=== PATIENT | female | born 1975 | race Caucasian/White ===

== ENCOUNTER 2018-11-24 08:00 | Outpatient (CLI) | payer OTHER | END 2018-11-24 09:00 | disposition home or self-care (01) | LOC: D.MAMMO 08:00 | DX: Z12.31 Encounter for screening mammogram for malignant neoplasm of breast (principal) ==

== ENCOUNTER → 2020-04-09 21:23 | Outpatient (CLI) | payer OTHER | END | disposition home or self-care (01) | LOC: D.MAMMO 16:15 | PROVIDERS: ATTEND Family Medicine | DX: Z12.31 Encounter for screening mammogram for malignant neoplasm of breast (principal) ==

== ENCOUNTER 2020-07-29 10:00 | Day surgery (SDC) | payer OTHER ==
[~2020-07-29] VITALS: Ht 157.5 cm; Wt 102.3 kg
[~2020-07-29 10:00] MED LIST: HYDROCODON-ACE1 EA10 PO; MERIBIN5 MG PO; MULTI-DAY VITAM1 TAB PO; PROTONIX20 MG PO; TYLENOL W/CODEI1 TAB PO
[2020-07-29] MEDS ORDERED: VISTARIL50 MG PO (11:07)
[2020-07-29] MEDS ORDERED: PERCOCET 10-321 EAC1 PO (11:07)
[2020-07-29 11:18] LABS: HCG SERUM NEGATIVE (NEGATIVE)
[2020-07-29 11:27] VITALS: Ht 157.5 cm; Wt 102.3 kg
[2020-07-29 12:12] LABS: HEMATOCRIT 37.1 % (36.0-48.0); MCH 30.8 pg (26.0-34.0); MCHC 32.3 g/dL (31.0-37.0); MCV 95.1 fL (80.0-100.0); MEAN PLATELET VOLUME 9.4 fL (7.4-10.4); RBC 3.9 10x6/uL (4.00-5.40); RDW 13.1 % (11.5-14.5); WBC 5.3 10x3/uL (4.8-10.8)
--- NOTE | 2020-07-29 14:03 | NUR ---
ASSUMED CARE OF PT FROM NIKIA NOLEN RN. REPORT RECEIVED.
--- NOTE | 2020-07-29 15:41 | NUR ---
DISCHARGE INSTRUCTIONS REVIEWED WITH PATIENT AND SPOUSE, DISCHARGED HOME VIA WHEELCHAIR TO PRIVATE VEHICLE WITH SPOUSE
--- NOTE | 2020-07-30 07:57 | OP ---
PATIENT NAME: FLAKO MARCANO MEDICAL RECORD: [id number] LOCATION:[facility] ADMISSION DATE: SURGEON: WATSON PHILLIPS DO DATE OF OPERATION: 07/29/2020 PROCEDURE PERFORMED: Left ankle open reduction and internal fixation. PREOPERATIVE DIAGNOSIS: Left ankle fracture. POSTOPERATIVE DIAGNOSIS: Left ankle fracture. INDICATIONS: Ms. Marcano is a 44-year-old female who was dancing on her boat and fell and broke her left ankle. She was seen in my clinic and scheduled for surgery as a displaced distal fibular fracture with medial space widening. I informed her of the risks of this including infection, bleeding, malunion, nonunion, continued pain, need for further surgery, failure of implants and blood clots and even and she signed the consent. SURGEON: Watson Phillips DO DESCRIPTION OF PROCEDURE: The patient was taken to the operative suite, laid in supine position, given general anesthetic. She was given a block by anesthesia in the preoperative area prior to this. She was given 2 g of Ancef. After she was sedated, an LMA was placed. The left lower extremity was prepped and draped in sterile fashion. A time-out was performed and everyone was in agreement with correct side, site, patient, and procedure. I then exsanguinated the left lower extremity with an Esmarch. Tourniquet was inflated to 350 mmHg and was up for 21 minutes. I made an incision on the lateral ankle. Careful dissection down to the fibula reduced it. I put the plate on, was in good position in AP and lateral, and I put a screw into the shaft and then locked distally and one more screw in the shaft. I noticed the mortise widening in the medial clear space and then I clamped it together and put a ZipTight across. This held it very well and I stressed it under fluor and I did not widen after the ZipTight was put in place. The tourniquet was then let down. Any bleeding was coagulated with a pickup and a Bovie. Andra Mcdonough, certified surgical assistant plant control operator student, then closed the skin with 2-0 Vicryl in interrupted fashion and a ZipLine placed on the lateral ankle incision. She was then dressed with Adaptic, 4 x 4, ABD on the heel and over the incision. A cast padding and a 4 x 30 splint placed posteriorly, wrapped and secured with an Donaldo wrap. She was awakened and taken to recovery in stable condition. Estimated blood loss minimal. Complications none. Tourniquet was let down in 21 minutes. NTS:[id number] Voice Confirmation ID: [id number] DOCUMENT ID: [id number] WATSON PHILLIPS DO at [id number] CC: [id number] DICTATION DATE: 07/29/20 1327 PORTAL ARCHITECT: 07/29/20 2253 [facility] 07/29/20 [id number] [place] [address]
== END 2020-07-29 15:41 | disposition home or self-care (01) ==
LOC: D.OPS 10:00 → D.PAN 12:45 → D.OPS 15:41 → D.PAN 17:00 → D.OPS 17:45
PROVIDERS: Anesthesiology; ATTEND Orthopaedic Surgery
DX: S82.62XA Displaced fracture of lateral malleolus of left fibula, initial encounter for closed fracture (principal); X58.XXXA Exposure to other specified factors, initial encounter; M25.572 Pain in left ankle and joints of left foot

== ENCOUNTER 2021-04-22 16:15 | Outpatient (CLI) | payer OTHER ==
[2020-07-29 11:27] VITALS: BMI 41.2
[~2021-04-22 16:15] MED LIST changes: +PERCOCET 10-321 EAC1 PO; +VISTARIL50 MG PO
== END 2021-04-22 23:59 | disposition home or self-care (01) ==
LOC: D.MAMMO 16:15
PROVIDERS: ATTEND Family Medicine
DX: Z12.31 Encounter for screening mammogram for malignant neoplasm of breast (principal)